=== PATIENT | female | born 1955 | race Caucasian/White ===

== ENCOUNTER → 2016-10-18 | Outpatient (CLI) | payer OTHER ==
[~2016-10-18] MED LIST: VICODIN 5/500 T1 TAB PO
--- NOTE | 2016-10-18 16:01 | RADIOLOGY REPORT PS360 ---
US THYROID HISTORY: Follow-up nodule THYROID NOGULE ORDERING PHYSICIAN: Hari Patel MD PATIENT AGE: 60 years COMPARISON: 10/14/2015 FINDINGS: Left lobe of thyroid gland has been surgically removed. The right lobe is 3.3 x 1.1 1.2 cm. There is a 4 x 3 mm isoechoic nodule in the mid aspect of the right lobe not significantly changed. Previously noted cystic nodule in the right is no longer apparent. IMPRESSION: 1. 4 mm solid appearing nodule mid pole and right probably benign. Continued follow-up recommended. 2. Prior left thyroidectomy
== END ==
LOC: RAD 12:26
DX: D34 Benign neoplasm of thyroid gland (principal); E03.9 Hypothyroidism, unspecified